=== PATIENT | male | born 1970 | race Caucasian/White ===

== ENCOUNTER → 2020-11-16 | Outpatient (CLI) | payer MEDICARE, OTHER | LOC: KOH-I 14:30 | DX: M54.9 Dorsalgia, unspecified (principal); M25.512 Pain in left shoulder; R05 Cough; M50.322 Other cervical disc degeneration at C5-C6 level; M51.34 Other intervertebral disc degeneration, thoracic region; M51.36 Other intervertebral disc degeneration, lumbar region; R91.1 Solitary pulmonary nodule; Z96.7 Presence of other bone and tendon implants; Z96.612 Presence of left artificial shoulder joint | CPT/HCPCS: 71046; 72050; 72070; 72100; 73030 ==

== ENCOUNTER → 2021-06-09 | Outpatient (CLI) | payer MEDICARE, OTHER | LOC: CT 08:00 | DX: C34.11 Malignant neoplasm of upper lobe, right bronchus or lung (principal); N20.0 Calculus of kidney; K76.9 Liver disease, unspecified | CPT/HCPCS: 36415; 71260; 82565; Q9967 ==